=== PATIENT | female | born 1955 | race Caucasian/White ===

== ENCOUNTER 2016-09-13 19:46 | Inpatient (IN) | payer MEDICARE, OTHER ==
[~2016-09-13] VITALS: Ht 172.7 cm; Wt 59.6 kg
[~2016-09-13 19:46] MED LIST: CARB200T14 PO; HALO5 PO; LITH300 PO; VENTAER INH
[2016-09-13 19:49] VITALS: BP 114/64; PULSE 73; RESP 16; TEMP 97.4; O2SAT 100
[2016-09-13] MEDS ORDERED: MIRT30TA PO (20:37)
[2016-09-13] MEDS ORDERED: DIVA500T3 PO (20:37)
[2016-09-13] MEDS ORDERED: BUSP15TA PO (20:37)
[2016-09-13] MEDS ORDERED: BENZ0.5T PO (20:37)
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
[2016-09-13 21:21] LABS: AUTOMATED NEUTROPHIL # 6.9 TH/MM3 (1.8-7.7); BASOPHIL # 0.1 TH/MM3 (0-0.2); BASOPHIL % 0.8 % (0.0-2.0); EOSINOPHIL # 0.1 TH/MM3 (0-0.4); EOSINOPHIL % 1.3 % (0.0-4.0); HEMATOCRIT 39.2 % (35.0-46.0); HEMO FLAGS DIFF FINAL; LYMPH % 16.6 % (9.0-44.0); LYMPHOCYTE # 1.6 TH/MM3 (1.0-4.8); MEAN CELL VOLUME 84.7 FL (80.0-100.0); MEAN CORPUSCULAR HEMOGLOBIN 27.5 PG (27.0-34.0); MEAN CORPUSCULAR HGB CONC 32.5 % (32.0-36.0); MONO % 11.2 % (0.0-8.0); NEUT % 70.1 % (16.0-70.0); PLATELET COUNT 272 TH/MM3 (150-450); RED BLOOD COUNT 4.62 MIL/MM3 (4.00-5.30); RED CELL DISTRIBUTION WIDTH 13.8 % (11.6-17.2); WHITE BLOOD COUNT 9.8 TH/MM3 (4.0-11.0)
[2016-09-13 21:53] LABS: ALT (GPT) 22 U/L (10-53)
[2016-09-13 21:56] LABS: ALCOHOL LESS THAN 3 MG/DL (0-5); ANION GAP 10 MEQ/L (5-15); AST (GOT) 25 U/L (15-37); BICARBONATE 24.3 MEQ/L (21.0-32.0); BLOOD UREA NITROGEN 3 MG/DL (7-18); CHLORIDE 98 MEQ/L (98-107); GLOMERULAR FILTRATION RATE 52 ML/MIN (>89); POTASSIUM 3.5 MEQ/L (3.5-5.1); SODIUM (NA) 132 MEQ/L (136-145)
[2016-09-13 22:04] LABS: ACETAMINOPHEN LESS THAN 2.0 MCG/ML (10.0-30.0); ALKALINE PHOSPHATASE 151 U/L (45-117); TOTAL BILIRUBIN ADULT 0.3 MG/DL (0.2-1.0)
[2016-09-14 00:21] LABS: BLOOD, URINE NEG (NEG); GLUCOSE,URINE NEG (NEG); KETONE, URINE NEG (NEG); NITRITE,URINE NEG (NEG); PH, URINE 6.5 (5.0-8.5); SQUAMOUS EPITHELIAL CELL URINE 1 /hpf (0-5)
[2016-09-14 00:22] LABS: COMMENT (UR) CULT NOT INDICATED; CULTURE IF INDICATED CULT NOT INDICATED; URINE COLOR STRAW (YELLW/STRAW)
[2016-09-14] MEDS ORDERED: ACETAMINOPHEN 325 MG TAB PO PRN (06:30)
[2016-09-14] MEDS ORDERED: BENZTROPINE MESYLATE 2 MG/2 ML VIAL IM PRN (06:30)
[2016-09-14] MEDS ORDERED: diphenhydrAMINE HCL 50 MG CAP PO PRN (06:30)
[2016-09-14] MEDS ORDERED: BENZTROPINE MESYLATE 1 MG TAB PO PRN (06:30)
[2016-09-14] MEDS ORDERED: LORazepam 0.5 MG TAB PO PRN (06:30)
[2016-09-14] MEDS ORDERED: LORazepam 2 MG/ML VIAL IM PRN (06:30)
[2016-09-14] MEDS ORDERED: MAGNESIUM HYDROXIDE SUSP 30 ML CUP PO PRN (06:30)
[2016-09-14 07:46] VITALS: BP 116/54; PULSE 66; RESP 18; TEMP 98.4; O2SAT 98
[2016-09-14] MEDS: DIVALPROEX SODIUM E.R. 500 MG TAB PO SCH ×3 (09:00→20:20)
[2016-09-14] MEDS: REMOVE OLD PATCH T-DERMAL SCH (09:00)
[2016-09-14] MEDS: busPIRone HCL 5 MG TAB PO SCH ×3 (09:00→17:38)
[2016-09-14] MEDS: NICOTINE 21 MG/24 HR PATCH T-DERMAL SCH ×2 (09:00→13:18)
[2016-09-14 12:08] VITALS: BP 96/57; PULSE 99; RESP 12; TEMP 96.4; O2SAT 98
--- NOTE | 2016-09-14 17:26 | EKG ---
Date Performed: 09/13/2016 Time Performed: 21:03:56 PTAGE: 60 years EKG: Sinus rhythm WITH OCCASIONAL SUPRAVENTRICULAR PREMATURE COMPLEXES BORDERLINE ECG Since PREVIOUS TRACING , no significant change noted PREVIOUS TRACIN01/13/1997 14.37.21 DOCTOR: Tamia Joseph Interpretating Date/Time 09/14/2016 17:25:40
[2016-09-14] MEDS: MIRTAZAPINE 15 MG TAB PO SCH (20:20)
[2016-09-15 05:14] VITALS: BP 111/57; PULSE 67; RESP 18; TEMP 98.6; O2SAT 98
[2016-09-15] MEDS: REMOVE OLD PATCH T-DERMAL SCH (09:00)
[2016-09-15] MEDS: NICOTINE 21 MG/24 HR PATCH T-DERMAL SCH ×2 (09:00→09:13)
[2016-09-15] MEDS: DIVALPROEX SODIUM E.R. 500 MG TAB PO SCH ×2 (09:12→21:47)
[2016-09-15] MEDS: busPIRone HCL 5 MG TAB PO SCH ×3 (09:13→17:39)
[2016-09-15 10:58] LABS: ALKALINE PHOSPHATASE 136 U/L (45-117); ALT (GPT) 19 U/L (10-53); ANION GAP 8 MEQ/L (5-15); AST (GOT) 9 U/L (15-37); BICARBONATE 27.1 MEQ/L (21.0-32.0); BLOOD UREA NITROGEN 8 MG/DL (7-18); CHLORIDE 108 MEQ/L (98-107); GLOMERULAR FILTRATION RATE 47 ML/MIN (>89); HDL CHOLESTEROL 65.6 MG/DL (40.0-60.0); LDL CHOLESTEROL 76 MG/DL (0-99); POTASSIUM 4.3 MEQ/L (3.5-5.1); SODIUM (NA) 143 MEQ/L (136-145); TOTAL BILIRUBIN ADULT 0.1 MG/DL (0.2-1.0)
[2016-09-15] MEDS ORDERED: ACETAMINOPHEN 325 MG TAB PO PRN (13:00)
[2016-09-15] MEDS ORDERED: diphenhydrAMINE HCL 50 MG CAP PO PRN (13:00)
[2016-09-15] MEDS ORDERED: MAGNESIUM HYDROXIDE SUSP 30 ML CUP PO PRN (13:00)
[2016-09-15] MEDS ORDERED: hydrOXYzine HCL 50 MG TAB PO PRN (13:00)
[2016-09-15] MEDS ORDERED: PALIPERIDONE ER 6 MG TAB PO SCH (13:00)
[2016-09-15] MEDS ORDERED: ALUMINUM/MAGNESIUM/SIMETH 30 ML CUP PO PRN (13:00)
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
--- NOTE | 2016-09-15 15:30 | PD.TTN ---
Present for Treatment Team Treatment Team Staff: Provider (Dr Duong), Nurse (Kaykay), Psych Therapist (Cassidy ), Occupational Therapist (Batool) Patient Problems 1. Discharge planning 2. Medication compliance 3. Knowledge deficit 4. Lack of coping skills Progress Toward Goals Provider Input: needs to be stabilized has some kidney issues Nurse Input: takes the meds sleeping and no other complaints Psych Therapist Input: is new brought in by family Occupational Therapist Input: new admit and has not attended any since admit 09/14/16 Cassidy Alexander TEMPLATE CUTTER Sep 15, 2016 15:30
[2016-09-15 16:26] LABS: HEMOGLOBIN A1a 1.4 %; HEMOGLOBIN A1b 1.7 %; HEMOGLOBIN Ao 86.1 %; HEMOGLOBIN LA1C 1.7 %; HEMOGLOBIN P3 3.2 %
[2016-09-15 17:48] VITALS: BP 99/66; PULSE 110; RESP 18; TEMP 97.6; O2SAT 98
[2016-09-15 21:14] VITALS: BP 99/66; PULSE 110; RESP 18; TEMP 97.6; O2SAT 98
[2016-09-15] MEDS: MIRTAZAPINE 15 MG TAB PO SCH (21:48)
[2016-09-16 05:40] VITALS: BP 120/75; PULSE 86; RESP 18; TEMP 97.8; O2SAT 93
[2016-09-16] MEDS: DIVALPROEX SODIUM E.R. 500 MG TAB PO SCH ×2 (08:52→21:44)
[2016-09-16] MEDS: busPIRone HCL 5 MG TAB PO SCH ×3 (08:52→17:23)
[2016-09-16] MEDS: NICOTINE 21 MG/24 HR PATCH T-DERMAL SCH (08:53)
[2016-09-16] MEDS ORDERED: NICOTINE 21 MG/24 HR PATCH T-DERMAL SCH (09:00)
[2016-09-16] MEDS: REMOVE OLD PATCH T-DERMAL SCH (09:00)
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
[2016-09-16 15:55] VITALS: BP 128/56; PULSE 87; RESP 18; TEMP 97.1; O2SAT 96
[2016-09-16] MEDS: MIRTAZAPINE 15 MG TAB PO SCH (21:44)
[2016-09-17 05:00] VITALS: BP 142/64; PULSE 78; RESP 15; TEMP 97.5; O2SAT 93
[2016-09-17] MEDS: NICOTINE 21 MG/24 HR PATCH T-DERMAL SCH (09:00)
[2016-09-17] MEDS: PALIPERIDONE ER 6 MG TAB PO SCH (09:00)
[2016-09-17] MEDS: REMOVE OLD PATCH T-DERMAL SCH (09:00)
[2016-09-17] MEDS: DIVALPROEX SODIUM E.R. 500 MG TAB PO SCH ×2 (09:00→20:56)
[2016-09-17] MEDS: busPIRone HCL 5 MG TAB PO SCH ×3 (09:28→18:00)
[2016-09-17] MEDS: ALUMINUM/MAGNESIUM/SIMETH 30 ML CUP PO PRN (09:46)
--- NOTE | 2016-09-17 10:45 | HHI.PYPN ---
Subjective Remarks Patient seen in her room with family practice resident Barry, chart reviewed, patient compliant medication. Patient somewhat calmer, she is compliant with medications. She denies suicidality homicidality voices or visions. States that she can live with her son when discharged. At this time feel patient does have capacity to sign voluntary will lift Echeverria act allow patient to sign voluntary consider discharge by the end of the week Review of Systems Except as stated in HPI: all other systems reviewed are Neg Objective Alert: Yes [place]: Person, Place Mood: Anxious (mildly), Calm Affect: Other (decreased range and intensity) Memory Intact: Comment (poor to fair) Hallucinations: Other (denies today) Delusions: No Delusion Type: Other (somewhat vigilant) Suicidal: Ideation (denies today) Homicidal: Ideation (denies today) Insight/Judgment Poor Vitals/IOs Vital Signs Date Time Temp Pulse Resp B/P Pulse Ox O2 Delivery O2 Flow Rate FiO2 09/17/16 05:00 97.5 78 15 142/64 93 09/14/16 07:46 Room Air Intake and Output 09/16/16 09/16/16 09/16/16 07:59 15:59 23:59 Intake Total 360 ml 1020 ml Balance 360 ml 1020 ml Assessment & Plan Problem List: (1) Paranoid type schizophrenia, chronic state with acute exacerbation ICD Code: F20.0 Assessment & Plan Estimated LOS: days patient somewhat calmer, psychosis paranoia markedly diminished, compliant with medications, more focused and appropriate Justification for Cont. Inpt. At this time patient will decompensate if placed in a lower level of care Discharge Planning To be determined Request HC Surrog/Guard Advoc?: No Minesh Duong MD Sep 17, 2016 10:45
[2016-09-17] MEDS: MIRTAZAPINE 15 MG TAB PO SCH (20:56)
[2016-09-17 21:30] VITALS: BP 142/65; PULSE 78; RESP 16; TEMP 97.5; O2SAT 97
[2016-09-18 06:06] VITALS: BP 139/65; PULSE 73; RESP 17; TEMP 98; O2SAT 97
[2016-09-18] MEDS: REMOVE OLD PATCH T-DERMAL SCH (09:00)
[2016-09-18] MEDS: NICOTINE 21 MG/24 HR PATCH T-DERMAL SCH (09:16)
[2016-09-18] MEDS: PALIPERIDONE ER 6 MG TAB PO SCH (09:16)
[2016-09-18] MEDS: DIVALPROEX SODIUM E.R. 500 MG TAB PO SCH ×2 (09:16→20:28)
[2016-09-18] MEDS: busPIRone HCL 5 MG TAB PO SCH ×3 (09:17→18:00)
--- NOTE | 2016-09-18 09:32 | HHI.PYPN ---
Subjective Remarks Patient seen in her room with counselor Cassidy. Chart reviewed. Patient's Depakote level drawn this a.m. is 119 will recheck level in the morning. Patient in bed calm with me the shared with her the information that she cannot go back her son's apartment or he would be evicted. She was upset by that. However she also is agreeable to looking into one [facility]. For now continue treatment Review of Systems Except as stated in HPI: all other systems reviewed are Neg Objective Alert: Yes [place]: Person, Place Mood: Anxious (mildly), Calm Affect: Other (decreased range and intensity) Memory Intact: Comment (poor to fair) Hallucinations: Other (denies today) Delusions: No Delusion Type: Other (somewhat vigilant) Suicidal: Ideation (denies today) Homicidal: Ideation (denies today) Insight/Judgment Poor Labs Test 09/18/16 08:08 Valproic Acid (Depakene) Level 118 MCG/ML Vitals/IOs Vital Signs Date Time Temp Pulse Resp B/P Pulse Ox O2 Delivery O2 Flow Rate FiO2 09/18/16 06:06 98.0 73 17 139/65 97 09/14/16 07:46 Room Air Intake and Output 09/17/16 09/17/16 09/18/16 08:00 16:00 00:00 Intake Total 240 ml 480 ml Balance 240 ml 480 ml Assessment & Plan Problem List: (1) Paranoid type schizophrenia, chronic state with acute exacerbation ICD Code: F20.0 Assessment & Plan Estimated LOS: days patient continues withdrawn isolative somewhat delusional little insight into behaviors that hospitalized. Though she denies suicidality at this time. The continues to be somewhat elevated Depakote. We will repeat the level tomorrow morning to see with the trend might be. Justification for Cont. Inpt. At this time patient will decompensate if placed in a lower level of care Discharge Planning To be determined Request HC Surrog/Guard Advoc?: No Minesh Duong MD Sep 18, 2016 09:32
[2016-09-18] MEDS: ALUMINUM/MAGNESIUM/SIMETH 30 ML CUP PO PRN (13:38)
[2016-09-18 19:08] VITALS: BP 115/83; PULSE 98; RESP 16; TEMP 97.9; O2SAT 99
[2016-09-18] MEDS: MIRTAZAPINE 15 MG TAB PO SCH (20:25)
[2016-09-19 05:57] VITALS: BP 101/54; PULSE 69; RESP 13; TEMP 97.6; O2SAT 96
[2016-09-19] MEDS: REMOVE OLD PATCH T-DERMAL SCH (09:00)
[2016-09-19] MEDS: DIVALPROEX SODIUM E.R. 500 MG TAB PO SCH ×3 (10:12→21:50)
[2016-09-19] MEDS: NICOTINE 21 MG/24 HR PATCH T-DERMAL SCH (10:12)
[2016-09-19] MEDS: PALIPERIDONE ER 6 MG TAB PO SCH (10:12)
[2016-09-19] MEDS: busPIRone HCL 5 MG TAB PO SCH ×3 (10:12→18:00)
--- NOTE | 2016-09-19 14:45 | HHI.PYPN ---
Subjective Remarks Patient seen in her room, patient napping, arousable to calm cooperative. He should compliant with the medications. Will repeat Depakote blood level in a.m. tomorrow. For now continue treatment Review of Systems Except as stated in HPI: all other systems reviewed are Neg Objective Alert: Yes [place]: Person, Place Mood: Anxious (mildly), Calm Affect: Other (decreased range and intensity) Memory Intact: Comment (poor to fair) Hallucinations: Other (denies today) Delusions: No Delusion Type: Other (somewhat vigilant) Suicidal: Ideation (denies today) Homicidal: Ideation (denies today) Insight/Judgment Poor Vitals/IOs Vital Signs Date Time Temp Pulse Resp B/P Pulse Ox O2 Delivery O2 Flow Rate FiO2 09/19/16 05:57 97.6 69 13 101/54 96 Intake and Output 09/18/16 09/18/16 09/18/16 07:59 15:59 23:59 Intake Total 240 ml 1000 ml 960 ml Balance 240 ml 1000 ml 960 ml Assessment & Plan Problem List: (1) Paranoid type schizophrenia, chronic state with acute exacerbation ICD Code: F20.0 Assessment & Plan Estimated LOS: Patient calm cooperative no significant behavioral problems noticed. For now continue treatment. We'll check Depakote level over tomorrow Justification for Cont. Inpt. At this time patient will decompensate placed a lower level of care Discharge Planning To be determined Request HC Surrog/Guard Advoc?: No Minesh Duong MD Sep 19, 2016 14:45
[2016-09-19 16:15] VITALS: BP 135/70; PULSE 93; RESP 18; TEMP 98; O2SAT 96
[2016-09-19] MEDS: MIRTAZAPINE 15 MG TAB PO SCH (21:49)
[2016-09-20 06:00] VITALS: BP 110/53; PULSE 72; RESP 17; TEMP 98; O2SAT 96
[2016-09-20] MEDS: NICOTINE 21 MG/24 HR PATCH T-DERMAL SCH (09:00)
[2016-09-20] MEDS: DIVALPROEX SODIUM E.R. 500 MG TAB PO SCH (09:00)
[2016-09-20] MEDS: REMOVE OLD PATCH T-DERMAL SCH (09:00)
[2016-09-20] MEDS: PALIPERIDONE ER 6 MG TAB PO SCH (09:55)
[2016-09-20] MEDS: busPIRone HCL 5 MG TAB PO SCH ×3 (09:55→18:15)
--- NOTE | 2016-09-20 17:18 | HHI.PYPN ---
Subjective Remarks Pt seen and discussed with staff. Depakene has been held since yesterday due to elevated VPA and bilateral hand tremors. Today tremors have subsided. Repeat VPA was 121. Pt has been isolative to her room. She is awake and alert and c/o of feeling tired today, but improved compared to yesterday. No SI/HI Objective Alert: Yes [place]: Person, Place Mood: Calm Affect: Restricted Memory Intact: Comment (poor to fair) Hallucinations: Other (denies today) Delusions: No Delusion Type: Other (somewhat vigilant) Suicidal: Ideation (denies today) Homicidal: Ideation (denies today) Insight/Judgment limited Labs Test 09/20/16 08:44 Valproic Acid (Depakene) Level 121 MCG/ML Vitals/IOs Vital Signs Date Time Temp Pulse Resp B/P Pulse Ox O2 Delivery O2 Flow Rate FiO2 09/20/16 06:00 98.0 72 17 110/53 96 Intake and Output 09/19/16 09/19/16 09/20/16 08:00 16:00 00:00 Intake Total 0 ml 480 ml 480 ml Balance 0 ml 480 ml 480 ml Assessment & Plan Problem List: (1) Paranoid type schizophrenia, chronic state with acute exacerbation ICD Code: F20.0 Assessment & Plan Continue to hold depakene. Recheck VPA in morning. Continue current tx plan. Estimated LOS: days Justification for Cont. Inpt. medication changes requiring active monitoring. Request HC Surrog/Guard Advoc?: Anel Garcia MD Sep 20, 2016 17:18
[2016-09-20] MEDS: MIRTAZAPINE 15 MG TAB PO SCH (21:15)
[2016-09-21 06:00] VITALS: BP 130/85; PULSE 87; RESP 17; TEMP 98.5; O2SAT 98
[2016-09-21] MEDS: busPIRone HCL 5 MG TAB PO SCH ×3 (08:53→18:07)
[2016-09-21] MEDS: PALIPERIDONE ER 6 MG TAB PO SCH (08:53)
[2016-09-21] MEDS: NICOTINE 21 MG/24 HR PATCH T-DERMAL SCH (08:55)
[2016-09-21] MEDS: REMOVE OLD PATCH T-DERMAL SCH (08:55)
--- NOTE | 2016-09-21 16:46 | HHI.PYPN ---
Subjective Remarks Pt seen and discussed with staff. Pt's VPA is 62 today. She has been alert and oriented today. She has been out in dayroom interacting with peers and staff. No tremors or lethargy.No seizure activity. No SI/HI Objective Alert: Yes [place]: Person, Place Mood: Calm Affect: Restricted Memory Intact: Comment (intact) Hallucinations: Other (denies today) Delusions: No Delusion Type: Other (none) Suicidal: Ideation (denies today) Homicidal: Ideation (denies today) Insight/Judgment limited Labs Test 09/21/16 11:25 Valproic Acid (Depakene) Level 62 MCG/ML Vitals/IOs Vital Signs Date Time Temp Pulse Resp B/P Pulse Ox O2 Delivery O2 Flow Rate FiO2 09/21/16 06:00 98.5 87 17 130/85 98 Intake and Output 09/20/16 09/20/16 09/21/16 08:00 16:00 00:00 Intake Total 600 ml Balance 600 ml Assessment & Plan Problem List: (1) Paranoid type schizophrenia, chronic state with acute exacerbation ICD Code: F20.0 Assessment & Plan Will restart depakote at lower dose (250mg PO QAM and 500mg PO QHS) and recheck level . Continue other medications without changes. Estimated LOS: days Justification for Cont. Inpt. medicatin changes requiring active monitoring Request HC Surrog/Guard Advoc?: Anel Garcia MD Sep 21, 2016 16:46
[2016-09-21 18:46] VITALS: BP 121/62; PULSE 79; RESP 17; TEMP 96.5; O2SAT 99
[2016-09-21] MEDS: MIRTAZAPINE 15 MG TAB PO SCH (21:18)
[2016-09-21] MEDS: DIVALPROEX DR 500 MG TABEC PO SCH (21:18)
[2016-09-22 05:38] VITALS: BP 91/54; PULSE 62; RESP 16; TEMP 96.2
[2016-09-22] MEDS: PALIPERIDONE ER 6 MG TAB PO SCH (08:33)
[2016-09-22] MEDS: DIVALPROEX SODIUM DELAYED RELEASE 250 MG TAB PO SCH (08:33)
[2016-09-22] MEDS: busPIRone HCL 5 MG TAB PO SCH ×3 (08:33→18:00)
[2016-09-22] MEDS: REMOVE OLD PATCH T-DERMAL SCH (08:35)
[2016-09-22] MEDS: NICOTINE 21 MG/24 HR PATCH T-DERMAL SCH (08:35)
--- NOTE | 2016-09-22 12:17 | HHI.PYPN ---
Subjective Remarks Patient discussed with treatment team, chart review, Patient seen in day room with floor staff. Patient calm pleasant with me now denies suicidality voices or visions. She is excited about possible placement the next 1-2 days. For now continue treatment Review of Systems Except as stated in HPI: all other systems reviewed are Neg Objective Alert: Yes [place]: Person, Place Mood: Calm Affect: Restricted Memory Intact: Comment (intact) Hallucinations: Other (denies today) Delusions: No Delusion Type: Other (none) Suicidal: Ideation (denies today) Homicidal: Ideation (denies today) Insight/Judgment Poor Vitals/IOs Vital Signs Date Time Temp Pulse Resp B/P Pulse Ox O2 Delivery O2 Flow Rate FiO2 09/22/16 05:38 96.2 62 16 91/54 09/21/16 18:46 99 Intake and Output 09/21/16 09/21/16 09/22/16 08:00 16:00 00:00 Intake Total 1320 ml Balance 1320 ml Assessment & Plan Problem List: (1) Paranoid type schizophrenia, chronic state with acute exacerbation ICD Code: F20.0 Assessment & Plan Estimated LOS: days patient somewhat calmer more appropriate focused now denying voices visions denying suicidality. Is excited about possible placement Justification for Cont. Inpt. At this time patient may decompensate if not placed in an appropriate level of care Discharge Planning To be determined Request HC Surrog/Guard Advoc?: No Minesh Duong MD Sep 22, 2016 12:17
--- NOTE | 2016-09-22 13:56 | PD.TTN ---
Present for Treatment Team Treatment Team Staff: Provider (Rhoda), Nurse (Elizabeth), Psych Therapist ( Cassidy ), Occupational Therapist (Anmol ) Patient Problems 1. Discharge planning 2. Medication compliance 3. Knowledge deficit 4. Lack of coping skills Progress Toward Goals Provider Input: stable asks staff for updates/weekend and discharge planning Nurse Input: compliant Psych Therapist Input: pt is stable and passed an un-eventful weekend can go to [place] once PASSR II is complete Occupational Therapist Input: attends some groups Cassidy Ingram DOCTOR OF PODIATRIC MEDICINE Sep 22, 2016 13:56
[2016-09-22 17:17] VITALS: BP 121/59; PULSE 81; RESP 18; TEMP 97.7; O2SAT 98
[2016-09-22] MEDS: DIVALPROEX DR 500 MG TABEC PO SCH (20:19)
[2016-09-22] MEDS: MIRTAZAPINE 15 MG TAB PO SCH (20:20)
[2016-09-23 05:31] VITALS: BP 116/63; PULSE 80; RESP 15; TEMP 98; O2SAT 97
[2016-09-23] MEDS: DIVALPROEX SODIUM DELAYED RELEASE 250 MG TAB PO SCH (08:44)
[2016-09-23] MEDS: PALIPERIDONE ER 6 MG TAB PO SCH (08:44)
[2016-09-23] MEDS: busPIRone HCL 5 MG TAB PO SCH ×3 (08:45→17:57)
[2016-09-23] MEDS: NICOTINE 21 MG/24 HR PATCH T-DERMAL SCH (08:48)
[2016-09-23] MEDS: REMOVE OLD PATCH T-DERMAL SCH (08:48)
--- NOTE | 2016-09-23 09:50 | HHI.PYPN ---
Subjective Remarks Patient seen in [place] with nurse Elizabeth and medical student Tatiana, chart review, patient compliant medications. Patient showing some mild increased anxiety perhaps related to her anticipated discharge next 1-2 days for local [facility]. She did acknowledge this to us also. She is overall calm cooperative denying suicidality homicidality voices or visions at the present time she says she is sleeping well, patient is given a Cogentin today that seemed to help somewhat with anxiety Review of Systems Except as stated in HPI: all other systems reviewed are Neg Objective Alert: Yes [place]: Person, Place Mood: Calm Affect: Restricted Memory Intact: Comment (intact) Hallucinations: Other (denies today) Delusions: No Delusion Type: Other (none) Suicidal: Ideation (denies today) Homicidal: Ideation (denies today) Insight/Judgment Poor Vitals/IOs Vital Signs Date Time Temp Pulse Resp B/P Pulse Ox O2 Delivery O2 Flow Rate FiO2 09/23/16 05:31 98.0 80 15 116/63 97 Intake and Output 09/22/16 09/22/16 09/22/16 07:59 15:59 23:59 Intake Total 2880 ml Balance 2880 ml Assessment & Plan Problem List: (1) Paranoid type schizophrenia, chronic state with acute exacerbation ICD Code: F20.0 Assessment & Plan Estimated LOS: days patient continues somewhat psychotic but her irritability in affect and. She showing some increased focus. Compliant medications. Justification for Cont. Inpt. This time patient will decompensate if not placed in an appropriate level of care Discharge Planning To be determined Request HC Surrog/Guard Advoc?: No Minesh Duong MD Sep 23, 2016 09:50
[2016-09-23 18:06] VITALS: BP 127/60; PULSE 66; RESP 18; TEMP 96.8; O2SAT 99
[2016-09-23] MEDS: DIVALPROEX DR 500 MG TABEC PO SCH (21:00)
[2016-09-23] MEDS: MIRTAZAPINE 15 MG TAB PO SCH (21:00)
[2016-09-24 05:45] VITALS: BP 108/56; PULSE 72; RESP 16; TEMP 98.1
[2016-09-24 06:22] VITALS: BP 108/56; PULSE 72; RESP 16; TEMP 98.1; O2SAT 100
[2016-09-24] MEDS: busPIRone HCL 5 MG TAB PO SCH ×3 (08:38→17:30)
[2016-09-24] MEDS: DIVALPROEX SODIUM DELAYED RELEASE 250 MG TAB PO SCH (08:39)
[2016-09-24] MEDS: PALIPERIDONE ER 6 MG TAB PO SCH (08:39)
[2016-09-24] MEDS: REMOVE OLD PATCH T-DERMAL SCH (09:00)
[2016-09-24] MEDS: NICOTINE 21 MG/24 HR PATCH T-DERMAL SCH (09:00)
--- NOTE | 2016-09-24 14:32 | HHI.PYPN ---
Subjective Remarks Patient seen in her room with nurse Charissa, chart reviewed. Patient continues to isolate the no behavioral problems, continue somewhat confused and mildly delusional. Sabianism waiting on 1 more formed before patient can be transferred to [facility] hopefully this will be done tomorrow Review of Systems Except as stated in HPI: all other systems reviewed are Neg Objective Alert: Yes [place]: Person, Place Mood: Calm Affect: Restricted Memory Intact: Comment (intact) Hallucinations: Other (denies today) Delusions: No Delusion Type: Other (none) Suicidal: Ideation (denies today) Homicidal: Ideation (denies today) Insight/Judgment Poor Vitals/IOs Vital Signs Date Time Temp Pulse Resp B/P Pulse Ox O2 Delivery O2 Flow Rate FiO2 09/24/16 06:22 98.1 72 16 108/56 100 Intake and Output 09/23/16 09/23/16 09/23/16 07:59 15:59 23:59 Intake Total 360 ml 840 ml 1860 ml Output Total 240 ml Balance 120 ml 840 ml 1860 ml Assessment & Plan Problem List: (1) Paranoid type schizophrenia, chronic state with acute exacerbation ICD Code: F20.0 Assessment & Plan Estimated LOS: days patient continues somewhat psychotic no behavioral problems , she is calm cooperative and compliant medications. There may be possibly placement tomorrow with appropriate forms are done Justification for Cont. Inpt. At this time patient will decompensate if not placed in an appropriate level of care Discharge Planning To be determined Request HC Surrog/Guard Advoc?: No Minesh Duong MD Sep 24, 2016 14:32
[2016-09-24 18:00] VITALS: BP 104/74; PULSE 98; TEMP 92.3; O2SAT 98
[2016-09-24] MEDS: DIVALPROEX DR 500 MG TABEC PO SCH (21:15)
[2016-09-24] MEDS: MIRTAZAPINE 15 MG TAB PO SCH (21:15)
[2016-09-25 06:00] VITALS: BP 111/63; PULSE 62; RESP 18; TEMP 97.3
[2016-09-25] MEDS: busPIRone HCL 5 MG TAB PO SCH (08:26)
[2016-09-25] MEDS: PALIPERIDONE ER 6 MG TAB PO SCH (08:27)
[2016-09-25] MEDS: DIVALPROEX SODIUM DELAYED RELEASE 250 MG TAB PO SCH (08:27)
[2016-09-25] MEDS ORDERED: BUSP15TA PO (08:31)
[2016-09-25] MEDS ORDERED: REME30TA PO (08:31)
[2016-09-25] MEDS ORDERED: INVE6TAB3 PO (08:31)
[2016-09-25] MEDS ORDERED: DIVA250T PO (08:31)
[2016-09-25] MEDS: REMOVE OLD PATCH T-DERMAL SCH (08:32)
[2016-09-25] MEDS: NICOTINE 21 MG/24 HR PATCH T-DERMAL SCH (08:32)
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
== END 2016-09-25 11:10 | DRG 885 ==
LOC: NEPD 19:46 → NEDA 09-14 06:29 → H250 09-14 08:35
PROVIDERS: ADMIT Psychiatry & Neurology Psychiatry; ATTEND Psychiatry & Neurology Psychiatry
DX: F20.0 Paranoid schizophrenia (principal); R25.1 Tremor, unspecified; Z72.0 Tobacco use
CPT/HCPCS: 80053; 80061; 80164; 80307; 81001; 83036; 84443; 85025; 93005; Q0163